=== PATIENT | female | born 1975 | race Caucasian/White ===

== ENCOUNTER → 2023-09-15 08:25 | Outpatient (REF) | payer BC, SELFPAY | LOC: RAD 08:25 | PROVIDERS: ATTENDING PHYSICIAN Family Medicine | DX: K90.0 Celiac disease (principal); E03.9 Hypothyroidism, unspecified | CPT/HCPCS: 77080 ==

== ENCOUNTER → 2023-09-22 06:26 | Day surgery (SDC) | payer BC, SELFPAY | LOC: GI 06:26 | PROVIDERS: ATTENDING PHYSICIAN Internal Medicine Gastroenterology; FAMILY PHYSICIAN Family Medicine | DX: Z12.11 Encounter for screening for malignant neoplasm of colon (principal); Z86.010 Personal history of colon polyps; R19.4 Change in bowel habit; K64.8 Other hemorrhoids; R12 Heartburn; R13.10 Dysphagia, unspecified; K31.89 Other diseases of stomach and duodenum; K90.0 Celiac disease; D12.3 Benign neoplasm of transverse colon; D12.4 Benign neoplasm of descending colon; D72.820 Lymphocytosis (symptomatic); K29.50 Unspecified chronic gastritis without bleeding; D72.19 Other eosinophilia | CPT/HCPCS: 45380; 43239; 88305; 88342 ==

== ENCOUNTER → 2024-01-24 08:19 | Outpatient (REF) | payer BC, SELFPAY | LOC: WDC 08:19 | PROVIDERS: ATTENDING PHYSICIAN Obstetrics & Gynecology; FAMILY PHYSICIAN Family Medicine | DX: Z12.31 Encounter for screening mammogram for malignant neoplasm of breast (principal) | CPT/HCPCS: 77063; 77067 ==

== ENCOUNTER → 2024-05-21 08:05 | Outpatient (REF) | payer OTHER, SELFPAY | LOC: DHSLP 08:05 | PROVIDERS: ATTENDING PHYSICIAN Otolaryngology; FAMILY PHYSICIAN Family Medicine | DX: G47.30 Sleep apnea, unspecified (principal); R06.83 Snoring | CPT/HCPCS: 95800 ==

== ENCOUNTER → 2025-02-13 13:09 | Outpatient (REF) | payer OTHER, SELFPAY | LOC: WDC 13:09 | PROVIDERS: ATTENDING PHYSICIAN Obstetrics & Gynecology; FAMILY PHYSICIAN Nurse Practitioner | DX: Z12.31 Encounter for screening mammogram for malignant neoplasm of breast (principal) | CPT/HCPCS: 77063; 77067 ==

== ENCOUNTER 2025-05-16 06:17 | Day surgery (SDC) | payer OTHER, SELFPAY | END 2025-05-16 10:40 | disposition home or self-care (01) | LOC: GI 06:17 | PROVIDERS: ATTENDING PHYSICIAN Internal Medicine Gastroenterology | DX: K20.0 Eosinophilic esophagitis (principal); R12 Heartburn; K31.89 Other diseases of stomach and duodenum; K90.0 Celiac disease | CPT/HCPCS: 43239; 88305; 88342 ==